=== PATIENT | male | born 1995 | race Two or more races ===

== ENCOUNTER 2020-04-14 23:19 | Emergency (ER) | payer OTHER ==
[~2020-04-14] VITALS: Ht 175.3 cm; Wt 83.9 kg
--- NOTE | 2020-04-14 23:43 | NUR ---
PATIENT WAS MSE BY DR DUARTE IN ROOM 05A. PATIENT A & O X4.
[2020-04-15 00:09] VITALS: BP 126/58
--- NOTE | 2020-04-15 00:10 | NUR ---
Patient discharged to home in stable condition. Written and verbal after care instructions given. Patient verbalizes understanding of instructions. Stressed follow up or return to ER for worsening s/s. Patient was picked Up by sister. Patient refused W/C anesthetic assistant.
== END 2020-04-15 00:18 | disposition home or self-care (01) ==
LOC: ER 23:29
DX: S86.111A Strain of other muscle(s) and tendon(s) of posterior muscle group at lower leg level, right leg, initial encounter (principal); X50.0XXA Overexertion from strenuous movement or load, initial encounter; X50.9XXA Other and unspecified overexertion or strenuous movements or postures, initial encounter; Y93.67 Activity, basketball; Y92.89 Other specified places as the place of occurrence of the external cause
CPT/HCPCS: 73590; A4663